=== PATIENT | female | born 1990 | race Caucasian/White ===

== ENCOUNTER 2020-08-17 22:45 | Observation (INO) | payer MEDICAID ==
[~2020-08-17] VITALS: Ht 167.6 cm; Wt 90.3 kg
[2020-08-17] MEDS ORDERED: PREN1CTB21 PO (23:38)
[2020-08-17 23:40] VITALS: BP 115/75
== END 2020-08-17 23:55 | disposition home or self-care (01) ==
LOC: MLD 22:45
PROVIDERS: ADMIT Obstetrics & Gynecology; ATTEND Obstetrics & Gynecology
DX: O62.9 Abnormality of forces of labor, unspecified (principal); Z3A.37 37 weeks gestation of pregnancy; O24.419 Gestational diabetes mellitus in pregnancy, unspecified control
CPT/HCPCS: 59025; 82948; G0378

== ENCOUNTER 2020-09-07 06:40 | Observation (INO) | payer MEDICAID ==
[~2020-09-07] VITALS: Ht 167.6 cm; Wt 89.8 kg
[~2020-09-07 06:40] MED LIST: PREN1CTB21 PO
[2020-09-07 08:55] VITALS: BP 126/79
== END 2020-09-07 08:30 | disposition home or self-care (01) ==
LOC: MLD 06:40
PROVIDERS: ADMIT Obstetrics & Gynecology; ATTEND Obstetrics & Gynecology
DX: O62.9 Abnormality of forces of labor, unspecified (principal); Z3A.39 39 weeks gestation of pregnancy
CPT/HCPCS: 59025; G0378

== ENCOUNTER 2020-09-13 02:19 | Inpatient (IN) | payer MEDICAID, SELFPAY ==
[~2020-09-13] VITALS: Ht 167.6 cm; Wt 90.7 kg
[2020-09-13] MEDS ORDERED: AMPICILLIN 2,000 MG in NACL 0.9% MINI-BAG PLUS 100 ML IV SCH (03:25)
[2020-09-13] MEDS ORDERED: PROMETHAZINE 25 MG/ML VIAL IVP PRN (03:25)
[2020-09-13] MEDS ORDERED: NALBUPHINE 10 MG/ML AMP IVP PRN (03:25)
[2020-09-13] MEDS ORDERED: OXYTOCIN 20 UNITS in LACTATED RINGERS 1,000 ML IV SCH (03:25)
[2020-09-13] MEDS ORDERED: LACTATED RINGERS 1,000 ML IV SCH (03:25)
[2020-09-13] MEDS ORDERED: METHYLERGONOVINE 0.2 MG/ML AMP IM PRN ×2 (03:25→08:30)
[2020-09-13] MEDS ORDERED: AMPICILLIN 2,000 MG VIAL ONE ×2 (04:05→05:10)
[2020-09-13 04:31] LABS: BASOPHILS % (AUTO) 0.5 % (0.0-2.0); EOSINOPHILS # (AUTO) 0.1 K/uL (0-0.4); EOSINOPHILS % (AUTO) 1.4 % (0.0-4.0); HEMATOCRIT 35.4 % (36-48); HEMOGLOBIN 12.2 g/dL (12.0-16.0); LYMPHOCYTES # (AUTO) 2.5 K/uL (2.5-16.5); LYMPHOCYTES % (AUTO) 28.9 % (20.5-51.1); MEAN CORPUSCULAR HEMOGLOBIN 30 pg (27-31); MEAN CORPUSCULAR HGB CONC 35 g/dL (33-37); MEAN CORPUSCULAR VOLUME 86.6 fL (80-94); MONOCYTES # (AUTO) 0.6 K/uL (0.8-1.0); MONOCYTES % (AUTO) 6.8 % (1.7-9.3); NEUTROPHILS # (AUTO) 5.4 K/uL (1.8-7.7); NEUTROPHILS % (AUTO) 62.4 % (42.2-75.2); PLATELET COUNT (AUTO) 185 K/uL (140-450); RED BLOOD CELL COUNT(AUTO) 4.08 MIL/uL (4.20-5.40); WHITE BLOOD COUNT (AUTO) 8.7 K/uL (4.8-10.8)
[2020-09-13 04:34] LABS: ALBUMIN 2.4 g/dL (3.4-5.0); ANION GAP 13.2 (8-16); CARBON DIOXIDE 21.5 mmol/L (21-32); CREATININE 0.8 mg/dL (0.6-1.3); POTASSIUM 3.7 mmol/L (3.5-5.1); TOTAL BILIRUBIN 0.5 mg/dL (0.0-1.0)
[2020-09-13 04:37] LABS: BARBITURATE, URINE NEGATIVE ng/ml (NEG <=200)
[2020-09-13 04:38] LABS: BENZODIAZEPINE, URINE NEGATIVE ng/mL (NEG <=200); CANNABINOID, URINE NEGATIVE ng/mL (NEG <=50); COCAINE, URINE NEGATIVE ng/mL (NEG <=300); OPIATE, URINE NEGATIVE ng/mL (NEG <=2000); PHENCYCLIDINE SCREEN,URINE NEGATIVE ng/mL (NEG <=25)
[2020-09-13 04:40] LABS: APPEARANCE,URINE CLEAR (CLEAR); BILIRUBIN,URINE NEGATIVE (NEGATIVE); BLOOD, URINE NEGATIVE (NEGATIVE); COLOR,URINE YELLOW (YELLOW); LEUKOCYTE ESTERASE ,URINE NEGATIVE (NEGATIVE); NITRITE, URINE NEGATIVE (NEGATIVE); UGLUCOSE NEGATIVE (NEGATIVE)
[2020-09-13] MEDS ORDERED: MORPHINE SULFATE 10 MG/ML VIAL ONE (05:10)
[2020-09-13] MEDS ORDERED: ROPIVACAINE 0.2%/NS PREMIX 200 ML EPI ONE (06:51)
[2020-09-13] MEDS ORDERED: ROPIVACAINE 0.2%/NS PREMIX 100 ML EPI SCH (07:20)
[2020-09-13 07:22] VITALS: BP 138/102
[2020-09-13] MEDS ORDERED: OXYTOCIN 20 UNITS/LR PREMIX 1,000 ML IV ONE (07:24)
[2020-09-13] MEDS ORDERED: AMPICILLIN 1,000 MG in NACL 0.9% MINI-BAG PLUS 50 ML IV SCH (08:00)
[2020-09-13] MEDS ORDERED: HYDROcodone/APAP 5/325 MG 1 TAB TAB PO PRN (08:30)
[2020-09-13] MEDS ORDERED: METHYLERGONOVINE 0.2 MG TAB PO PRN (08:30)
[2020-09-13] MEDS ORDERED: oxyCODONE/APAP 5/325 MG 1 TAB TAB PO PRN (08:30)
[2020-09-13] MEDS ORDERED: BENZOCAINE/MENTHOL 20%-0.5% 60 GM CAN TP PRN (08:30)
[2020-09-13] MEDS ORDERED: TEMAZEPAM 15 MG CAP PO PRN (08:30)
[2020-09-13] MEDS ORDERED: OXYTOCIN 10 UNITS/ML VIAL IM PRN (08:30)
[2020-09-13] MEDS ORDERED: IBUPROFEN 800 MG TAB PO PRN (08:30)
--- NOTE | 2020-09-13 08:57 | NUR ---
PATIENT HAS BEEN SCREENED AND CATEGORIZED LOW NUTRITION RISK. PATIENT WILL BE SEEN WITHIN 7 DAYS OF ADMISSION. 09/19/[address]
[2020-09-13] MEDS ORDERED: DOCUSATE SOD/SENNA 50/8.6 MG 1 TAB PO SCH (21:00)
[2020-09-14 10:20] LABS: HEMATOCRIT 36.2 % (36-48); HEMOGLOBIN 12.2 g/dL (12.0-16.0)
[2020-09-14] MEDS ORDERED: FERR325E14 PO (12:54)
[2020-09-14] MEDS ORDERED: IBUP-2213 PO (12:55)
== END 2020-09-14 14:52 | disposition home or self-care (01) | DRG 560 ==
LOC: MLD 02:19 → MFCC 11:50
PROVIDERS: ADMIT Obstetrics & Gynecology; ATTEND Obstetrics & Gynecology
PROC: 10E0XZZ Delivery of Products of Conception, External Approach (ICD-10-PCS; principal; 2020-09-13)
PROC: 3E0R3BZ Introduction of Anesthetic Agent into Spinal Canal, Percutaneous Approach (ICD-10-PCS; 2020-09-13)
PROC: 00HU33Z Insertion of Infusion Device into Spinal Canal, Percutaneous Approach (ICD-10-PCS; 2020-09-13)
PROC: 3E0234Z Introduction of Serum, Toxoid and Vaccine into Muscle, Percutaneous Approach (ICD-10-PCS; 2020-09-13)
DX: O24.429 Gestational diabetes mellitus in childbirth, unspecified control (principal); Z20.822 Contact with and (suspected) exposure to COVID-19; Z37.0 Single live birth; Z3A.39 39 weeks gestation of pregnancy; Z23 Encounter for immunization
CPT/HCPCS: 36415; 51702; 59409; 80053; 80305; 81003; 85018; 85025; 86592; 86762; 86886; 86900; 86901; 87340; 87653-90; 90715; J0290; J2270; J2300; J2550; J2590; J2795; J7120